=== PATIENT | female | born 1990 | race Two or more races ===

== ENCOUNTER 2018-09-30 07:46 | Inpatient (IN) | payer OTHER ==
[~2018-09-30] VITALS: Ht 165.1 cm; Wt 3.2 kg
[2018-09-30] MEDS ORDERED: PRENATAL TABLE1 EAC2 PO (08:18)
== END 2018-10-04 12:24 | DRG 788 ==
LOC: OB/GYN 07:46 → LDR 07:46 → O/R 10-01 14:06 → OB/GYN 10-01 14:38
PROVIDERS: ADMIT Obstetrics & Gynecology Obstetrics
PROC: 4A1HXCZ Monitoring of Products of Conception, Cardiac Rate, External Approach (ICD-10-PCS; 2018-09-30)
PROC: 3E033VJ Introduction of Other Hormone into Peripheral Vein, Percutaneous Approach (ICD-10-PCS; 2018-10-01)
PROC: 10D00Z1 Extraction of Products of Conception, Low, Open Approach (ICD-10-PCS; principal; 2018-10-01 12:00)
DX: O61.0 Failed medical induction of labor (principal); Z3A.40 40 weeks gestation of pregnancy; Z37.0 Single live birth